=== PATIENT | male | born 1955 | race Caucasian/White ===

== ENCOUNTER 2022-03-02 10:15 | Outpatient (CLI) | payer BC ==
[~2022-03-02 10:15] MED LIST: Magnevist 469MG/ML 20 ML VIAL ONE
== END 2022-03-02 10:16 | disposition home or self-care (01) ==
LOC: CSHMRI 10:15
PROVIDERS: ATTEND Internal Medicine Gastroenterology
DX: I81 Portal vein thrombosis (principal); E88.01 Alpha-1-antitrypsin deficiency; Z86.010 Personal history of colon polyps
CPT/HCPCS: 74183; A9579